=== PATIENT | male | born 1955 | race Caucasian/White ===

== ENCOUNTER 2016-12-12 09:03 | Inpatient (IN) | payer OTHER ==
[2016-12-12 10:02] VITALS: BMI 23.5
--- NOTE | 2016-12-12 11:50 | HP ---
CIWA Score - CIWA Score Nausea/Vomitin-No Nausea/No Vomiting Muscle Tremors: 4-Moderate,w/Arms Extend Anxiety: 4-Mod. Anxious/Guarded Agitation: 4-Moderately Restless Paroxysmal Sweats: 1-Minimal Palms Moist Orientation: 0-Oriented Tacttile Disturbances: 3-Moderate Itch/Numb/Burn Auditory Disturbances: 0-None Visual Disturbances: 0-None Headache: 0-None Present CIWA-Ar Total Score: 16 Admission ROS BHS - HPI Chief Complaint: DETOX TX FOR ALCOHOL DEPENDENCE Allergies/Adverse Reactions: Allergies Allergy/AdvReac Type Severity Reaction Status Date / Time No Known Allergies Allergy Verified 12/12/16 10:18 History of Present Illness: 61 Y/O H/M WITH A HX OF ALCOHOL AND COCAINE DEPENDENCE ON MMTP Exam Limitations: No Limitations - Ebola screening Have you traveled outside of the country in the last 21 days: No Have you had contact with anyone from an Ebola affected area: No Have you been sick,other than usual withdrawal symptoms: No Do you have a fever: No - Review of Systems Constitutional: Chills, Loss of Appetite, Night Sweats, Changes in sleep EENT: reports: Blurred Vision, Tearing, Nose Congestion, Dental Problems (NO TEETH) Respiratory: reports: No Symptoms reported Cardiac: reports: Lightheadedness, Syncope GI: reports: Diarrhea, Nausea, Poor Appetite, Poor Fluid Intake, Vomiting : reports: Frequency Musculoskeletal: reports: Back Pain, Joint Pain, Muscle Pain Integumentary: reports: No Symptoms Reported Neuro: reports: Unsteady Gait, Dizziness Endocrine: reports: No Symptoms Reported Hematology: reports: No Symptoms Reported Psychiatric: reports: Orientated x3, Anxious, Depressed Other Systems: Reviewed and Negative Patient History - Patient Medical History Hx Anemia: No Hx Asthma: No Hx Chronic Obstructive Pulmonary Disease (COPD): No Hx Cardiac Disorders: No Hx Hypertension: No Hx Hypercholesterolemia: No HX Cerebrovascular Accident: No Hx Seizures: No Hx Diabetes: Yes (IDDM) Hx Gastrointestinal Disorders: Yes (HEMORRHOIDS) Hx Genitourinary Disorders: No Hx Sexually Transmitted Disorders: No Hx Renal Disease (ESRD): No Hx Thyroid Disease: No Hx Human Immunodeficiency Virus (HIV): No (NEGATIVE HX) Hx Hepatitis C: Yes (NO TREATMENT) Hx Depression: Yes (ANXIETY) Hx Suicide Attempt: No Hx Schizophrenia: No - Patient Surgical History Past Surgical History: No Hx Neurologic Surgery: No Hx Cataract Extraction: No Hx Cardiac Surgery: No Hx Lung Surgery: No Hx Breast Surgery: No Hx Breast Biopsy: No Hx Abdominal Surgery: No Hx Appendectomy: No Hx Cholecystectomy: No Hx Genitourinary Surgery: No Hx Orthopedic Surgery: No Anesthesia Reaction: No - PPD History Previous Implant?: Yes Documented Results: Positive w/o proof Implanted On Prior [facility] Admission?: No PPD to be Administered?: No - Reproductive History Patient is a Female of Child Bearing Age (11 -55 yrs old): No (MALE) - Smoking Cessation Smoking history: Current every day smoker Have you smoked in the past 12 months: Yes Aproximately how many cigarettes per day: 20 Hx Chewing Tobacco Use: No Initiated information on smoking cessation: Yes 'Breaking Loose' booklet given: 12/12/16 - Substance & Tx. History Hx Alcohol Use: Yes (BEER) Hx Substance Use: Yes (HEROIN/CRACK) Substance Use Type: Alcohol, Cocaine, Heroin Hx Substance Use Treatment: Yes ([facility] [place]) - Substances Abused Crack Route: Smoking Frequency: Daily Amount used: $100-200 Age of first use: 28 Date of Last Use: 12/11/16 Heroin Route: Inhalation Frequency: 1-2 times per week Amount used: 1 bag Age of first use: 16 Date of Last Use: 12/12/16 Alcohol-beer Route: Oral Frequency: Daily Amount used: 1-6 pk. Age of first use: 11 Date of Last Use: 12/12/16 Family Disease History - Family Disease History Family Disease History: Diabetes: Mother, Other: Brother (ALCOHOLISM) Admission Physical Exam S - Vital Signs Vital Signs: Vital Signs - 24 hr 12/12/16 09:59 Temperature 96.7 F L Pulse Rate 82 Respiratory 18 Rate Blood Pressure 111/82 - Physical General Appearance: Yes: Moderate Distress, Irritable, Anxious, Other (SLIGHTLY DROWSY BUT EASILY AROUSABLE.) HEENTM: Yes: EOMI, Normocephalic, SHANE, Pharynx Normal Respiratory: Yes: Chest Non-Tender, Lungs Clear, Normal Breath Sounds, No Respiratory Distress Neck: Yes: Supple, Trachea in good position Cardiology: Yes: Regular Rhythm, Regular Rate, S1, S2 Abdominal: Yes: Normal Bowel Sounds, Non Tender, Soft Genitourinary: Yes: Other (N/C) Musculoskeletal: Yes: full range of Motion, Gait Steady Extremities: Yes: Normal Range of Motion, Non-Tender Neurological: Yes: recreation therapy teacher II-XII NML intact, Fully Oriented, Alert Integumentary: Yes: Dry, Warm Lymphatic: Yes: Within Normal Limits - Diagnostic (1) Alcohol dependence with uncomplicated withdrawal Current Visit: Yes Status: Acute (2) Cocaine dependence, uncomplicated Current Visit: Yes Status: Acute (3) Methadone maintenance therapy patient Current Visit: Yes Status: Chronic (4) History of hepatitis C Current Visit: Yes Status: Chronic (5) Diabetes mellitus Current Visit: Yes Status: Chronic (6) History of hemorrhoids Current Visit: Yes Status: Chronic Cleared for Admission [facility] - Detox or Rehab [facility] Level of Care: Medically Managed Detox Regimen/Protocol: Librium [facility] Breath Alcohol Content Breath Alcohol Content: 0 Urine Drug Screen - Results Drug Screen Negative: No Urine Drug Screen Results: ADAM-Cocaine, OPI-Opiates, MTD-Methadone, TCA- Tricyclic Antidepress, OXY-Oxycodone
[2016-12-12] MEDS ORDERED: [UNRECOGNIZED DRUG - OTHER] PO PRN (11:56)
[2016-12-12] MEDS ORDERED: MAG HYDROX/AL HYDROX/SIMETH 30 ML UNIT-DOSE CUP PO PRN (11:56)
[2016-12-12] MEDS ORDERED: PSEUDOEPHEDRINE PO PRN (11:56)
[2016-12-12] MEDS ORDERED: NICOTINE POLACRILEX 4 MG GUM BUC PRN (11:56)
[2016-12-12] MEDS ORDERED: ACETAMINOPHEN 325 MG TABLET (FP) PO PRN (11:56)
[2016-12-12] MEDS ORDERED: MAGNESIUM HYDROX 2400MG/30ML ORAL SUSPENSION 30 ML CUP PO PRN (11:56)
[2016-12-12] MEDS ORDERED: chlordiazePOXIDE HCL 25 MG CAPSULE PO PRN (11:56)
[2016-12-12] MEDS ORDERED: MENTHOL/PHENOL 1 EACH UD MM PRN (11:56)
[2016-12-12] MEDS ORDERED: hydrOXYzine PAMOATE 25 MG CAPSULE (FP) PO PRN (11:56)
[2016-12-12] MEDS ORDERED: LOPERAMIDE HCL 2 MG CAPSULE PO PRN (11:56)
[2016-12-12] MEDS ORDERED: guaiFENesin/D-METHORPHAN HB 10 ML UNIT-DOSE CUPS PO PRN (11:56)
[2016-12-12] MEDS ORDERED: MAGNESIUM CITRATE 300 ML BOTTLE PO PRN (11:56)
[2016-12-12] MEDS: NICOTINE 21 MG/24 HOURS TOPICAL PATCH TD SCH (13:44)
--- NOTE | 2016-12-12 14:37 | CONSULT ---
[facility] Psychiatric Consult - Data Date of interview: 12/12/16 Admission source: [facility] Identifying data: This is 61 years old male with no psychiatric hospitalization history intoxicated with Opioids, Crack, Alcohol and Nicotine Substance Abuse History: Smoking history: Current every day smoker. Have you smoked in the past 12 months: Yes. Aproximately how many cigarettes per day: 20. Hx Chewing Tobacco Use: No. Initiated information on smoking cessation: Yes. 'Breaking Loose' booklet given: 12/12/16. - Substance & Tx. History. Hx Alcohol Use: Yes (BEER). Hx Substance Use: Yes (HEROIN/CRACK). Substance Use Type: Alcohol, Cocaine, Heroin. Hx Substance Use Treatment: Yes ([facility]). - Substances Abused. Crack. Route: Smoking. Frequency: Daily. Amount used: $100-200. Age of first use: 28. Date of Last Use: 12/11/16. Heroin. Route: Inhalation. Frequency: 1-2 times per week. Amount used: 1 bag. Age of first use: 16. Date of Last Use: 12/12/16. Alcohol-beer. Route: Oral. Frequency: Daily. Amount used: 1-6 pk. Age of first use: 11. Date of Last Use : 12/12/16 Medical History: MMTP 90mg per day Psychiatric History: Patient reports history of anxiety, reports no psychiatric medications taking prior to admission Physical/Sexual Abuse/Trauma History: Denies Additional Comment: Observation. Detox Unit Care Protocol Mental Status Exam - Mental Status Exam Alert and Oriented to: Person Cognitive Function: Fair Patient Appearance: Unkempt Mood: Euthymic Affect: Mood Congruent Patient Behavior: Cooperative Speech Pattern: Appropriate Voice Loudness: Normal Thought Process: Goal Oriented Thought Disorder: Being Controlled Hallucinations: Denies Suicidal Ideation: Denies Homicidal Ideation: Denies Insight/Judgement: Fair Sleep: Difficulty falling asleep Appetite: Fair Muscle strength/Tone: Normal Gait/Station: Shuffling Additional Comments: Observation. Detox Unit Care Protocol Psychiatric Findings - Problem List ([place] 1, 2,3) (1) Drug-induced mood disorder Current Visit: Yes Status: Acute (2) Nicotine dependence Current Visit: Yes Status: Acute - Initial Treatment Plan Initial Treatment Plan: Observation. Detox Unit Care Protocol
[2016-12-12] MEDS: INSULIN SLIDING SCALE (NOVOLOG) 1 VIAL SQ SCH (17:07)
[2016-12-12] MEDS: chlordiazePOXIDE HCL 25 MG CAPSULE PO SCH ×2 (17:43→22:36)
[2016-12-12 20:14] LABS: URINE APPEARANCE CLEAR; URINE BILIRUBIN NEGATIVE (NEGATIVE); URINE BLOOD NEGATIVE (NEGATIVE); URINE COLOR AMBER; URINE GLUCOSE (UA) NEGATIVE (NEGATIVE); URINE KETONE NEGATIVE (NEGATIVE); URINE LEUK ESTERASE NEGATIVE (NEGATIVE); URINE NITRITE NEGATIVE (NEGATIVE); URINE PROTEIN NEGATIVE (NEGATIVE); URINE UROBILINOGEN 4.0 E.U/dl E.U./dl (0.2-1.0)
[2016-12-12] MEDS: THIAMINE HCL 100 MG TABLET (FP) PO SCH (22:36)
[2016-12-13] MEDS ORDERED: METHADONE HCL 10 MG TABLET ONE (05:26)
[2016-12-13] MEDS ORDERED: METHADONE HCL 40 MG DISPERSABLE TABLET ONE (05:26)
[2016-12-13] MEDS ORDERED: METHADONE HCL 5 MG TABLET ONE (05:27)
[2016-12-13] MEDS: chlordiazePOXIDE HCL 25 MG CAPSULE PO SCH ×4 (05:39→22:25)
[2016-12-13] MEDS: METHADONE 80 MG, METHADONE 10 MG, METHADONE 5 MG PO SCH (05:40)
[2016-12-13] MEDS ORDERED: METHADONE HCL 10 MG TABLET PO SCH (06:00)
[2016-12-13] MEDS: INSULIN SLIDING SCALE (NOVOLOG) 1 VIAL SQ SCH ×2 (07:23→17:47)
[2016-12-13 10:12] LABS: MCH 29.5 pg (25.7-33.7); MCHC 32.5 g/dl (32.0-35.9); MEAN CELL VOLUME 90.7 fl (80-96); MEAN PLT VOLUME 7.4 fl (7.5-11.1); PLATELET COUNT 239 K/MM3 (134-434); RDW 14.8 % (11.9-15.9); WHITE BLOOD COUNT 6.3 K/mm3 (4.0-10.0)
[2016-12-13] MEDS: PRENATAL VITAMINS W/ FOLIC ACID TABLET (FP) PO SCH (10:44)
[2016-12-13] MEDS: NICOTINE 21 MG/24 HOURS TOPICAL PATCH TD SCH (10:44)
[2016-12-13 10:47] LABS: ALBUMIN 3.6 g/dl (3.4-5.0); ALK PHOS 140 U/L (45-117); ANION GAP 7 (8-16); BILIRUBIN,TOTAL 0.5 mg/dL (0.2-1.0); CALCIUM 8.8 mg/dL (8.5-10.1); CO2 27 mmol/L (21-32); CREATININE 0.7 mg/dL (0.7-1.3); GLUCOSE,RANDOM 111 mg/dL (74-106); SGOT/AST 54 U/L (15-37); SGPT/ALT 62 U/L (12-78)
[2016-12-13] MEDS: BACITRACIN 0.9 GM PACKET TP SCH ×2 (11:15→22:25)
[2016-12-13] MEDS: AMMONIUM LACTATE 12% LOTION 225 GM BOTTLE TP SCH ×2 (11:15→22:25)
--- NOTE | 2016-12-13 11:18 | PN ---
S CIWA - CIWA Score Nausea/Vomitin-No Nausea/No Vomiting Muscle Tremors: 4-Moderate,w/Arms Extend Anxiety: 3 Agitation: 4-Moderately Restless Paroxysmal Sweats: 3 Orientation: 0-Oriented Tacttile Disturbances: 0-None Auditory Disturbances: 0-None Visual Disturbances: 0-None Headache: 0-None Present CIWA-Ar Total Score: 14 BHS Progress Note (SOAP) Subjective: shakes sweats dry hands/skin on edge of fingers split interrupted sleep body aches Objective: 12/13/16 11:16 Vital Signs Temperature 98.0 F 12/13/16 09:58 Pulse Rate 100 H 12/13/16 09:58 Respiratory Rate 16 12/13/16 09:58 Blood Pressure 112/79 12/13/16 09:58 O2 Sat by Pulse Oximetry (%) Laboratory Tests 12/12/16 12/12/16 12/12/16 10:44 16:42 19:00 WBC RBC Hgb Hct MCV MCHC RDW Plt Count MPV Sodium Potassium Chloride Carbon Dioxide Anion Gap BUN Creatinine Creat Clearance w eGFR POC Glucometer 162 112 Random Glucose Calcium Total Bilirubin AST ALT Alkaline Phosphatase Total Protein Albumin Urine Color [place] Urine Appearance Clear Urine pH 5.0 Ur Specific [place] 1.025 Urine Protein Negative Urine Glucose (UA) Negative Urine Ketones Negative Urine Blood Negative Urine Nitrite Negative Urine Bilirubin Negative Urine Urobilinogen 4.0 e.u/dl Ur Leukocyte Esterase Negative 12/13/16 12/13/16 12/13/16 05:58 06:00 06:00 WBC 6.3 RBC 4.22 Hgb 12.4 Hct 38.3 MCV 90.7 MCHC 32.5 RDW 14.8 Plt Count 239 MPV 7.4 L Sodium 138 Potassium 4.6 Chloride 104 Carbon Dioxide 27 Anion Gap 7 L BUN 15 Creatinine 0.7 Creat Clearance w eGFR > 60 POC Glucometer 112 Random Glucose 111 H Calcium 8.8 Total Bilirubin 0.5 AST 54 H ALT 62 Alkaline Phosphatase 140 H Total Protein 8.0 Albumin 3.6 Urine Color Urine Appearance Urine pH Ur Specific [place] Urine Protein Urine Glucose (UA) Urine Ketones Urine Blood Urine Nitrite Urine Bilirubin Urine Urobilinogen Ur Leukocyte Esterase awake/alert ambulating no acute distress Assessment: 12/13/16 11:16 withdrawal sx Plan: continue detox increase fluids bacitracin oint lac-hydrin lotion glucerna with meals
[2016-12-13 12:44] LABS: SICKLE CELL SCREEN NEGATIVE (NEGATIVE)
--- NOTE | 2016-12-13 16:56 | EKG ---
Test Reason : Blood Pressure : / mmHG Vent. Rate : 083 BPM Atrial Rate : 083 BPM P-R Int : 152 ms QRS Dur : 090 ms QT Int : 370 ms P-R-T Axes : 076 -02 065 degrees QTc Int : 434 ms NORMAL SINUS RHYTHM NORMAL ECG NO PREVIOUS ECGS AVAILABLE Confirmed by IDANIA NEWBERRY MD ([id number]) on 12/13/2016 4:55:57 PM Referred By: Confirmed By:IDANIA NEWBERRY MD
[2016-12-13] MEDS: diphenhydrAMINE HCL 50 MG CAPSULE PO PRN (22:24)
[2016-12-13] MEDS: THIAMINE HCL 100 MG TABLET (FP) PO SCH (22:24)
[2016-12-14] MEDS ORDERED: METHADONE HCL 10 MG TABLET ONE (04:16)
[2016-12-14] MEDS ORDERED: METHADONE HCL 40 MG DISPERSABLE TABLET ONE (04:16)
[2016-12-14] MEDS ORDERED: METHADONE HCL 5 MG TABLET ONE (04:17)
[2016-12-14] MEDS: METHADONE 80 MG, METHADONE 10 MG, METHADONE 5 MG PO SCH (05:45)
[2016-12-14] MEDS: chlordiazePOXIDE HCL 25 MG CAPSULE PO SCH ×2 (05:45→10:36)
[2016-12-14] MEDS: IBUPROFEN 400 MG TABLET (FP) PO PRN ×2 (05:47→22:57)
[2016-12-14] MEDS: INSULIN SLIDING SCALE (NOVOLOG) 1 VIAL SQ SCH ×2 (07:57→16:44)
[2016-12-14] MEDS: PRENATAL VITAMINS W/ FOLIC ACID TABLET (FP) PO SCH (10:36)
[2016-12-14] MEDS: BACITRACIN 0.9 GM PACKET TP SCH ×2 (10:36→22:55)
[2016-12-14] MEDS: NICOTINE 21 MG/24 HOURS TOPICAL PATCH TD SCH (10:37)
[2016-12-14] MEDS: AMMONIUM LACTATE 12% LOTION 225 GM BOTTLE TP SCH ×2 (10:37→22:56)
--- NOTE | 2016-12-14 11:21 | PN ---
BHS Progress Note (SOAP) Subjective: INTERRRUPTED SLEEP, SWEATS,LBP, DIARRHEA, DM Objective: 12/14/16 11:18 Vital Signs Temperature 97.3 F L 12/14/16 10:00 Pulse Rate 102 H 12/14/16 10:00 Respiratory Rate 16 12/14/16 10:00 Blood Pressure 113/79 12/14/16 10:00 O2 Sat by Pulse Oximetry (%) Laboratory Tests 12/12/16 12/12/16 12/12/16 10:44 16:42 19:00 WBC RBC Hgb Hct MCV MCHC RDW Plt Count MPV Sickle Cell Screen Sodium Potassium Chloride Carbon Dioxide Anion Gap BUN Creatinine Creat Clearance w eGFR POC Glucometer 162 112 Random Glucose Calcium Total Bilirubin AST ALT Alkaline Phosphatase Total Protein Albumin Urine Color [place] Urine Appearance Clear Urine pH 5.0 Ur Specific [place] 1.025 Urine Protein Negative Urine Glucose (UA) Negative Urine Ketones Negative Urine Blood Negative Urine Nitrite Negative Urine Bilirubin Negative Urine Urobilinogen 4.0 e.u/dl Ur Leukocyte Esterase Negative RPR Titer 12/13/16 12/13/16 12/13/16 05:58 06:00 06:00 WBC 6.3 RBC 4.22 Hgb 12.4 Hct 38.3 MCV 90.7 MCHC 32.5 RDW 14.8 Plt Count 239 MPV 7.4 L Sickle Cell Screen Negative Sodium 138 Potassium 4.6 Chloride 104 Carbon Dioxide 27 Anion Gap 7 L BUN 15 Creatinine 0.7 Creat Clearance w eGFR > 60 POC Glucometer 112 Random Glucose 111 H Calcium 8.8 Total Bilirubin 0.5 AST 54 H ALT 62 Alkaline Phosphatase 140 H Total Protein 8.0 Albumin 3.6 Urine Color Urine Appearance Urine pH Ur Specific [place] Urine Protein Urine Glucose (UA) Urine Ketones Urine Blood Urine Nitrite Urine Bilirubin Urine Urobilinogen Ur Leukocyte Esterase RPR Titer 12/13/16 12/13/16 12/14/16 06:00 17:17 05:41 WBC RBC Hgb Hct MCV MCHC RDW Plt Count MPV Sickle Cell Screen Sodium Potassium Chloride Carbon Dioxide Anion Gap BUN Creatinine Creat Clearance w eGFR POC Glucometer 136 108 Random Glucose Calcium Total Bilirubin AST ALT Alkaline Phosphatase Total Protein Albumin Urine Color Urine Appearance Urine pH Ur Specific [place] Urine Protein Urine Glucose (UA) Urine Ketones Urine Blood Urine Nitrite Urine Bilirubin Urine Urobilinogen Ur Leukocyte Esterase RPR Titer Nonreactive Assessment: 12/14/16 11:18 WITHDRAWAL SXLS Plan: CONT. DETOX INCREASE FLUIDS IMODIUM PRN
[2016-12-14] MEDS: chlordiazePOXIDE 5 MG CAPSULE PO SCH ×2 (17:59→22:55)
[2016-12-14] MEDS: THIAMINE HCL 100 MG TABLET (FP) PO SCH (22:56)
[2016-12-14] MEDS: diphenhydrAMINE HCL 50 MG CAPSULE PO PRN (22:58)
[2016-12-15] MEDS ORDERED: METHADONE HCL 5 MG TABLET ONE (05:19)
[2016-12-15] MEDS ORDERED: METHADONE HCL 40 MG DISPERSABLE TABLET ONE (05:19)
[2016-12-15] MEDS ORDERED: METHADONE HCL 10 MG TABLET ONE (05:19)
[2016-12-15] MEDS: chlordiazePOXIDE 5 MG CAPSULE PO SCH ×2 (05:53→10:48)
[2016-12-15] MEDS: METHADONE 80 MG, METHADONE 10 MG, METHADONE 5 MG PO SCH (05:53)
[2016-12-15] MEDS: IBUPROFEN 400 MG TABLET (FP) PO PRN ×2 (05:53→22:29)
[2016-12-15] MEDS: INSULIN SLIDING SCALE (NOVOLOG) 1 VIAL SQ SCH ×2 (07:10→16:31)
[2016-12-15] MEDS: BACITRACIN 0.9 GM PACKET TP SCH ×2 (10:48→22:29)
[2016-12-15] MEDS: PRENATAL VITAMINS W/ FOLIC ACID TABLET (FP) PO SCH (10:48)
[2016-12-15] MEDS: NICOTINE 21 MG/24 HOURS TOPICAL PATCH TD SCH (10:49)
[2016-12-15] MEDS: AMMONIUM LACTATE 12% LOTION 225 GM BOTTLE TP SCH ×2 (10:49→22:30)
--- NOTE | 2016-12-15 10:58 | PN ---
BHS Progress Note (SOAP) Subjective: sweats agitation Objective: 12/15/16 10:58 Vital Signs Temperature 97.3 F L 12/15/16 09:30 Pulse Rate 90 12/15/16 09:30 Respiratory Rate 20 12/15/16 09:30 Blood Pressure 124/68 12/15/16 09:30 O2 Sat by Pulse Oximetry (%) awake/alert ambulating no acute distress Assessment: 12/15/16 10:58 withdrawal sx Plan: continue detox increase fluids d/c in am
[2016-12-15] MEDS: chlordiazePOXIDE HCL 10 MG CAPSULE PO SCH ×2 (17:55→22:29)
[2016-12-15] MEDS: THIAMINE HCL 100 MG TABLET (FP) PO SCH (22:29)
[2016-12-15] MEDS: diphenhydrAMINE HCL 50 MG CAPSULE PO PRN (22:30)
[2016-12-16] MEDS ORDERED: METHADONE HCL 10 MG TABLET ONE (04:06)
[2016-12-16] MEDS ORDERED: METHADONE HCL 40 MG DISPERSABLE TABLET ONE (04:06)
[2016-12-16] MEDS ORDERED: METHADONE HCL 5 MG TABLET ONE (04:06)
[2016-12-16] MEDS: IBUPROFEN 400 MG TABLET (FP) PO PRN (04:27)
[2016-12-16] MEDS: chlordiazePOXIDE HCL 10 MG CAPSULE PO SCH (04:27)
[2016-12-16] MEDS: METHADONE 80 MG, METHADONE 10 MG, METHADONE 5 MG PO SCH (05:32)
--- NOTE | 2016-12-16 08:20 | PN ---
S Progress Note (SOAP) Subjective: ALERT,NO COMPLAINT Objective: 12/16/16 08:15 Vital Signs Temperature 97.5 F L 12/16/16 06:44 Pulse Rate 85 12/16/16 06:44 Respiratory Rate 18 12/16/16 06:44 Blood Pressure 109/78 12/16/16 06:44 O2 Sat by Pulse Oximetry (%) Assessment: 12/16/16 08:16 DETOX COMPLETED,NO WITHDRAWAL SYMPTOM Plan: DISCHARGE TODAY,FOLLOW UP WITH AFTER CARE PROGRAM ARRANGEMENT REVELATION
--- NOTE | 2016-12-16 08:22 | DS ---
[facility] Detox Discharge Summary Admission Date: 12/12/16 Discharge Date: 12/16/16 - History Present History: Alcohol Dependence, Cocaine Dependence, MMTP Additional Comments: FOLLOW UP WITH AFTER CARE PROGRAM REVELATION ARRANGEMENT AND PMD FOR MEDICAL PROBLEM Pertinent Past History: HEPATITIS C TYPE 2 DM HISTORY OF HEMORRHOIDS - Physical Exam Results Vital Signs: Vital Signs Temperature 97.5 F L 12/16/16 06:44 Pulse Rate 85 12/16/16 06:44 Respiratory Rate 18 12/16/16 06:44 Blood Pressure 109/78 12/16/16 06:44 O2 Sat by Pulse Oximetry (%) Pertinent Admission Physical Exam Findings: WITHDRAWAL SYMPTOM - Treatment Hospital Course: Detox Protocol Followed, Detoxed Safely, Responded well, Discharged Condition Good, Rehab Referral Accepted Patient has Accepted a Rehab Referral to: [facility] - Medication Discharge Medications: Ambulatory Orders Unobtainable [Unobtainable] 12/12/16 - AMA Did Patient Leave Against Medical Advice: No
[2016-12-16 10:16] VITALS: BP 120/74; PULSE 75; TEMP 97.3
== END 2016-12-16 10:21 | disposition home or self-care (01) | DRG 773 ==
LOC: YASAS 09:03 → Y6N 11:44
PROVIDERS: ADMIT Internal Medicine; ATTEND Internal Medicine
PROC: HZ2ZZZZ Detoxification Services for Substance Abuse Treatment (ICD-10-PCS; principal; 2016-12-16)
DX: F11.20 Opioid dependence, uncomplicated (principal); F10.230 Alcohol dependence with withdrawal, uncomplicated; F14.20 Cocaine dependence, uncomplicated; F17.210 Nicotine dependence, cigarettes, uncomplicated; E11.9 Type 2 diabetes mellitus without complications; Z79.4 Long term (current) use of insulin; F41.8 Other specified anxiety disorders; D64.9 Anemia, unspecified
CPT/HCPCS: 36415; 71020-TC; 80053; 81003; 85027; 85660; 86593; 93005; 93010

== ENCOUNTER 2021-03-11 15:39 | Inpatient (IN) | payer OTHER ==
[2021-03-11] MEDS ORDERED: ACETAMINOPHEN 500 MG TABLET (FP) PO ONE (16:52)
[2021-03-11] MEDS ORDERED: LIDOCAINE 5% TOPICAL PATCH TP ONE (16:52)
[2021-03-11] MEDS ORDERED: SODIUM CHLORIDE 0.9% 500 ML INFUS.BAG IV ONE (16:58)
[2021-03-11] MEDS ORDERED: SODIUM CHLORIDE 1,823 ML IV ONE (17:18)
[2021-03-11] MEDS ORDERED: LIDOCAINE 5% TOPICAL PATCH ONE (17:43)
[2021-03-11] MEDS ORDERED: ACETAMINOPHEN 325 MG TABLET (FP) ONE (17:43)
[2021-03-11 18:55] LABS: BASO % 0.9 % (0-2.0); EOS % 0.3 % (0-4.5); HEMATOCRIT 35.9 % (35.4-49); HEMOGLOBIN 12.1 GM/dL (11.7-16.9); LYMPH % 20.2 % (8-40); MCH 33.3 pg (25.7-33.7); MCHC 33.7 g/dl (32.0-35.9); MEAN CELL VOLUME 98.7 fl (80-96); MEAN PLT VOLUME 8.6 fl (7.5-11.1); MONO % 16.3 % (3.8-10.2); NEUT % 62.3 % (42.8-82.8); PLATELET COUNT 158 10^3/uL (134-434); RBC 3.64 M/mm3 (4.00-5.60); RDW 14.8 % (11.9-15.9); WHITE BLOOD COUNT 5.4 K/mm3 (4.0-10.0)
[2021-03-11 18:58] LABS: VENOUS BASE EXCESS 0.5 mmol/L (-2-2); VENOUS O2 SATURATION 26.6 % (70-80); VENOUS PCO2 48.6 mmHg (38-52); VENOUS PH 7.355 (7.310-7.410)
[2021-03-11 19:12] LABS: CHLORIDE 97 mmol/L (98-107); SODIUM 123 mmol/L (136-145)
[2021-03-11 19:13] LABS: CALCIUM 8.4 mg/dL (8.5-10.1)
[2021-03-11 19:14] LABS: ALBUMIN 2.3 g/dl (3.4-5.0); CO2 27 mmol/L (21-32); GLUCOSE,RANDOM 354 mg/dL (74-106)
[2021-03-11 19:17] LABS: CREATININE 0.7 mg/dL (0.55-1.3)
[2021-03-11 19:18] LABS: BILIRUBIN,TOTAL 1.2 mg/dL (0.2-1); TOT PROT 9.8 g/dl (6.4-8.2)
[2021-03-11 19:20] LABS: ALK PHOS 227 U/L (45-117)
[2021-03-11 19:21] LABS: ANION GAP -1 MMOL/L (8-16); SGOT/AST 285 U/L (15-37); SGPT/ALT 89 U/L (13-61)
[2021-03-11 19:32] LABS: ERYTHROCYTE SEDIMENTATION RATE 83 mm/hr (0-20)
[2021-03-11 20:45] LABS: URINE APPEARANCE CLEAR; URINE BILIRUBIN NEGATIVE (NEGATIVE); URINE COLOR YELLOW; URINE GLUCOSE (UA) 3+ (NEGATIVE); URINE KETONE NEGATIVE (NEGATIVE); URINE LEUK ESTERASE NEGATIVE (NEGATIVE); URINE NITRITE NEGATIVE (NEGATIVE); URINE PROTEIN NEGATIVE (NEGATIVE)
[2021-03-12] MEDS ORDERED: PIPERACILLIN/TAZOB 3.375 GM 3.375 GM in DEXTROSE 5%-WATER - 50 ML IVPB SCH (02:00)
[2021-03-12] MEDS ORDERED: PIPERACILLIN/TAZOB 3.375 GM 3.375 GM/50 ML BAG IVPB ONE (02:46)
[2021-03-12] MEDS: SODIUM CHLORIDE 1,000 ML IV SCH ×3 (03:00→15:59)
[2021-03-12] MEDS: PIPERACILLIN/TAZOB 3.375 GM 3.375 GM/50 ML BAG IVPB SCH ×2 (03:00→11:22)
[2021-03-12 04:00] VITALS: BMI 20.5
[2021-03-12] MEDS ORDERED: LIDOCAINE PATCH REMOVAL MC ONE (05:00)
[2021-03-12] MEDS: INSULIN SLIDING SCALE (NOVOLOG) 1 VIAL SQ SCH ×4 (06:08→21:12)
[2021-03-12 07:51] LABS: BASO % 0.9 % (0-2.0); EOS % 0.9 % (0-4.5); HEMATOCRIT 34.6 % (35.4-49); HEMOGLOBIN 11.9 GM/dL (11.7-16.9); LYMPH % 25.7 % (8-40); MCH 33.3 pg (25.7-33.7); MCHC 34.3 g/dl (32.0-35.9); MEAN CELL VOLUME 97.1 fl (80-96); MEAN PLT VOLUME 8.1 fl (7.5-11.1); MONO % 13.8 % (3.8-10.2); NEUT % 58.7 % (42.8-82.8); PLATELET COUNT 139 10^3/uL (134-434); RBC 3.56 M/mm3 (4.00-5.60); RDW 14.5 % (11.9-15.9); WHITE BLOOD COUNT 4.3 K/mm3 (4.0-10.0)
[2021-03-12 08:13] LABS: ALBUMIN 2.2 g/dl (3.4-5.0)
[2021-03-12 08:14] LABS: BLOOD UREA NITROGEN 7.4 mg/dL (7-18); CALCIUM 8.2 mg/dL (8.5-10.1)
[2021-03-12 08:17] LABS: CREATININE 0.5 mg/dL (0.55-1.3)
[2021-03-12 08:18] LABS: BILIRUBIN,TOTAL 1.7 mg/dL (0.2-1); TOT PROT 7.8 g/dl (6.4-8.2)
[2021-03-12] MEDS ORDERED: VANCOMYCIN 1 GM in D5W (PRE-DOCKED) 1,000 MG/250 ML IVPB SCH (10:00)
[2021-03-12] MEDS ORDERED: PIPERACILLIN/TAZOBACTAM 3.375 GM VIAL IVPB ONE ×2 (11:06→16:57)
[2021-03-12] MEDS ORDERED: DEXTROSE 5%-WATER - 50 ML IVPB ONE ×2 (11:06→16:57)
[2021-03-12] MEDS: PIPERACILLIN/TAZOB 3.375 GM 3.375 GM in DEXTROSE 5%-WATER - 3.375 GM/50 ML IVPB IVPB SCH ×2 (11:08→17:06)
[2021-03-12] MEDS: ENOXAPARIN NA (PORCINE) 40 MG/0.4 ML DISP.SYRIN SQ SCH (11:08)
[2021-03-12 11:16] LABS: HIV INTERPRETATION NEGATIVE (NEGATIVE)
[2021-03-12] MEDS ORDERED: INSULIN (NOVOLOG) ASPART 100 UNITS/ML 10ML VIAL ONE ×3 (11:17→20:25)
[2021-03-12] MEDS: ACETAMINOPHEN 325 MG TABLET (FP) PO PRN ×2 (15:59→21:53)
[2021-03-12 16:38] LABS: CALCIUM 8.4 mg/dL (8.5-10.1)
[2021-03-12 16:42] LABS: CREATININE 0.8 mg/dL (0.55-1.3)
[2021-03-13] MEDS ORDERED: DEXTROSE 5%-WATER - 50 ML IVPB ONE ×3 (00:42→17:54)
[2021-03-13] MEDS ORDERED: PIPERACILLIN/TAZOBACTAM 3.375 GM VIAL IVPB ONE ×4 (00:42→17:54)
[2021-03-13] MEDS: PIPERACILLIN/TAZOB 3.375 GM 3.375 GM in DEXTROSE 5%-WATER - 3.375 GM/50 ML IVPB IVPB SCH ×3 (01:14→17:58)
[2021-03-13] MEDS: INSULIN SLIDING SCALE (NOVOLOG) 1 VIAL SQ SCH ×4 (06:02→21:31)
[2021-03-13] MEDS: ACETAMINOPHEN 325 MG TABLET (FP) PO PRN ×2 (08:38→21:31)
[2021-03-13 08:43] LABS: BASO % 0.6 % (0-2.0); EOS % 0.9 % (0-4.5); HEMATOCRIT 37.6 % (35.4-49); HEMOGLOBIN 12.6 GM/dL (11.7-16.9); LYMPH % 23.2 % (8-40); MCH 32.7 pg (25.7-33.7); MCHC 33.4 g/dl (32.0-35.9); MEAN CELL VOLUME 97.9 fl (80-96); MEAN PLT VOLUME 8.3 fl (7.5-11.1); NEUT % 58.3 % (42.8-82.8); PLATELET COUNT 143 10^3/uL (134-434); RBC 3.84 M/mm3 (4.00-5.60); RDW 14.3 % (11.9-15.9); WHITE BLOOD COUNT 4.3 K/mm3 (4.0-10.0)
[2021-03-13 09:14] LABS: ALBUMIN 2.1 g/dl (3.4-5.0); MAGNESIUM 1.8 mg/dL (1.8-2.4)
[2021-03-13 09:17] LABS: CREATININE 0.6 mg/dL (0.55-1.3); PHOSPHOROUS 2.8 mg/dL (2.5-4.9)
[2021-03-13 09:19] LABS: BILIRUBIN,TOTAL 1.4 mg/dL (0.2-1); TOT PROT 7.6 g/dl (6.4-8.2)
[2021-03-13] MEDS: ENOXAPARIN NA (PORCINE) 40 MG/0.4 ML DISP.SYRIN SQ SCH (09:46)
[2021-03-13] MEDS: VANCOMYCIN 1 GM in D5W (PRE-DOCKED) 1,000 MG/250 ML IVPB SCH (09:46)
[2021-03-13] MEDS ORDERED: INSULIN (NOVOLOG) ASPART 100 UNITS/ML 10ML VIAL ONE ×2 (11:25→23:41)
[2021-03-13] MEDS: SODIUM CHLORIDE 1,000 ML IV SCH (23:18)
[2021-03-14] MEDS ORDERED: PIPERACILLIN/TAZOBACTAM 3.375 GM VIAL IVPB ONE ×2 (02:15→08:44)
[2021-03-14] MEDS ORDERED: DEXTROSE 5%-WATER - 50 ML IVPB ONE ×2 (02:15→08:44)
[2021-03-14] MEDS: PIPERACILLIN/TAZOB 3.375 GM 3.375 GM in DEXTROSE 5%-WATER - 3.375 GM/50 ML IVPB IVPB SCH ×2 (02:31→09:34)
[2021-03-14] MEDS: ACETAMINOPHEN 325 MG TABLET (FP) PO PRN ×3 (05:58→21:15)
[2021-03-14] MEDS: INSULIN SLIDING SCALE (NOVOLOG) 1 VIAL SQ SCH ×4 (06:01→21:41)
[2021-03-14 08:23] LABS: BASO % 0.5 % (0-2.0); EOS % 1.4 % (0-4.5); HEMATOCRIT 35.9 % (35.4-49); HEMOGLOBIN 12.1 GM/dL (11.7-16.9); MCH 32.7 pg (25.7-33.7); MCHC 33.7 g/dl (32.0-35.9); MEAN CELL VOLUME 97.2 fl (80-96); MEAN PLT VOLUME 8.4 fl (7.5-11.1); MONO % 16.9 % (3.8-10.2); NEUT % 57.2 % (42.8-82.8); PLATELET COUNT 141 10^3/uL (134-434); RDW 14.5 % (11.9-15.9); WHITE BLOOD COUNT 4.7 K/mm3 (4.0-10.0)
[2021-03-14 08:40] LABS: CALCIUM 8.8 mg/dL (8.5-10.1)
[2021-03-14 08:41] LABS: BLOOD UREA NITROGEN 11.3 mg/dL (7-18)
[2021-03-14 08:44] LABS: CREATININE 0.6 mg/dL (0.55-1.3)
[2021-03-14] MEDS: ENOXAPARIN NA (PORCINE) 40 MG/0.4 ML DISP.SYRIN SQ SCH (09:32)
[2021-03-14] MEDS: VANCOMYCIN 1 GM in D5W (PRE-DOCKED) 1,000 MG/250 ML IVPB SCH (09:35)
[2021-03-14] MEDS ORDERED: SODIUM CHLORIDE 1,000 ML IV SCH (09:59)
[2021-03-14] MEDS ORDERED: INSULIN (NOVOLOG) ASPART 100 UNITS/ML 10ML VIAL ONE (11:11)
[2021-03-14] MEDS: INSULIN (LEVEMIR) 100 UNITS/ML UNITS SQ SCH ×2 (11:45→17:19)
[2021-03-15] MEDS: INSULIN (LEVEMIR) 100 UNITS/ML UNITS SQ SCH ×2 (06:07→17:00)
[2021-03-15] MEDS: INSULIN SLIDING SCALE (NOVOLOG) 1 VIAL SQ SCH ×4 (06:08→21:58)
[2021-03-15] MEDS: ACETAMINOPHEN 325 MG TABLET (FP) PO PRN ×2 (06:08→21:53)
[2021-03-15 08:06] LABS: BASO % 1.1 % (0-2.0); EOS % 1.3 % (0-4.5); HEMATOCRIT 37.1 % (35.4-49); HEMOGLOBIN 12.8 GM/dL (11.7-16.9); LYMPH % 21.4 % (8-40); MCH 33.4 pg (25.7-33.7); MCHC 34.4 g/dl (32.0-35.9); MEAN CELL VOLUME 96.9 fl (80-96); MEAN PLT VOLUME 8.1 fl (7.5-11.1); MONO % 16.4 % (3.8-10.2); NEUT % 59.8 % (42.8-82.8); PLATELET COUNT 124 10^3/uL (134-434); RBC 3.83 M/mm3 (4.00-5.60); RDW 14.3 % (11.9-15.9)
[2021-03-15 08:29] LABS: ALBUMIN 2.2 g/dl (3.4-5.0); BLOOD UREA NITROGEN 12.4 mg/dL (7-18)
[2021-03-15 08:33] LABS: CREATININE 0.5 mg/dL (0.55-1.3)
[2021-03-15 08:34] LABS: BILIRUBIN,TOTAL 1.3 mg/dL (0.2-1); TOT PROT 7.8 g/dl (6.4-8.2)
[2021-03-15] MEDS: VANCOMYCIN 1 GM in D5W (PRE-DOCKED) 1,000 MG/250 ML IVPB SCH (09:02)
[2021-03-15] MEDS: ENOXAPARIN NA (PORCINE) 40 MG/0.4 ML DISP.SYRIN SQ SCH (09:02)
[2021-03-15] MEDS ORDERED: INSULIN (NOVOLOG) ASPART 100 UNITS/ML 10ML VIAL ONE ×2 (11:19→21:52)
[2021-03-16] MEDS: INSULIN SLIDING SCALE (NOVOLOG) 1 VIAL SQ SCH ×2 (06:18→10:24)
[2021-03-16] MEDS: INSULIN (LEVEMIR) 100 UNITS/ML UNITS SQ SCH (06:19)
[2021-03-16] MEDS ORDERED: INSULIN (LEVEMIR) 100 UNITS/ML UNITS SQ SCH (08:51)
[2021-03-16] MEDS ORDERED: INSULIN (LEVEMIR) 100 UNITS/ML UNITS SQ ONE (08:51)
[2021-03-16] MEDS: ACETAMINOPHEN 325 MG TABLET (FP) PO PRN (09:36)
[2021-03-16] MEDS: ENOXAPARIN NA (PORCINE) 40 MG/0.4 ML DISP.SYRIN SQ SCH (09:36)
[2021-03-16] MEDS ORDERED: Insulin (LOG) Aspart 100 UNITS/ML VIAL SQ SCH (11:00)
[2021-03-16 12:52] VITALS: BP 110/69; PULSE 90; TEMP 98.7
[2021-03-18 10:25] LABS: KAPPA/LAMBDA RATIO, UR 11.17
== END 2021-03-16 12:30 ==
LOC: JER 15:39 → JERBED 23:54 → J8W 03-12 03:23
PROVIDERS: ADMIT Internal Medicine; ATTEND Internal Medicine
PROC: HZ91ZZZ Pharmacotherapy for Substance Abuse Treatment, Methadone Maintenance (ICD-10-PCS; principal; 2021-03-11)
PROC: HZ2ZZZZ Detoxification Services for Substance Abuse Treatment (ICD-10-PCS; 2021-03-11)
DX: B19.20 Unspecified viral hepatitis C without hepatic coma (principal); F11.20 Opioid dependence, uncomplicated; M54.6 Pain in thoracic spine; E87.1 Hypo-osmolality and hyponatremia; R07.81 Pleurodynia; K70.10 Alcoholic hepatitis without ascites; E11.65 Type 2 diabetes mellitus with hyperglycemia; R74.01 Elevation of levels of liver transaminase levels; E88.09 Other disorders of plasma-protein metabolism, not elsewhere classified; R50.9 Fever, unspecified; K64.9 Unspecified hemorrhoids; Z59.0 Homelessness; E87.5 Hyperkalemia
CPT/HCPCS: 36415; 71045-TC-FY; 71101-TC-LT-FY; 72130-TC; 72133-TC; 76700-TC; 80048; 80053; 80074; 81003; 82010; 82550; 82553; 82803; 82947; 82962; 83036; 83605; 83690; 83735; 83883; 84100; 84132; 84484; 85025; 85651; 86140; 86850; 86900; 86901; 87040; 87086; 87186; 87389; 93005; 93010; 97116-GP; 97161-GP; 99285-25; C9803; Q9967; U0003; U0005

== ENCOUNTER 2021-03-16 12:55 | Inpatient (IN) | payer OTHER ==
[2021-03-16] MEDS ORDERED: guaiFENesin 200 MG/10 ML 10 ML UNIT-DOSE CUPS PO PRN (15:33)
[2021-03-16] MEDS ORDERED: P-EPHED 60MG/TRIPROLIDI 2.5MG TABLET PO PRN (15:33)
[2021-03-16] MEDS ORDERED: MAG HYDROX/AL HYDROX/SIMETH 30 ML UNIT-DOSE CUP PO PRN (15:33)
[2021-03-16] MEDS ORDERED: LOPERAMIDE HCL 2 MG CAPSULE PO PRN (15:33)
[2021-03-16] MEDS ORDERED: MAGNESIUM HYDROX 2400MG/30ML ORAL SUSPENSION 30 ML CUP PO PRN (15:33)
[2021-03-16] MEDS ORDERED: MAGNESIUM CITRATE 300 ML BOTTLE PO PRN (15:33)
[2021-03-16] MEDS ORDERED: NICOTINE POLACRILEX 2 MG GUM BC PRN (15:33)
[2021-03-16 16:07] VITALS: BMI 16.1
[2021-03-16] MEDS ORDERED: INSULIN (NOVOLOG) ASPART 100 UNITS/ML 10ML VIAL ONE ×2 (18:31→22:04)
[2021-03-16] MEDS: INSULIN (LEVEMIR) 100 UNITS/ML UNITS SQ SCH (18:38)
[2021-03-16] MEDS: Insulin (LOG) Aspart 100 UNITS/ML VIAL SQ SCH (18:39)
[2021-03-16] MEDS: hydrOXYzine PAMOATE 25 MG CAPSULE (FP) PO SCH ×2 (19:28→22:00)
[2021-03-16] MEDS: ATORVASTATIN CA 40 MG TABLET (FP) PO SCH (22:00)
[2021-03-16] MEDS: MELATONIN 5 MG TABLETS PO SCH (22:00)
[2021-03-16] MEDS: THIAMINE HCL 100 MG TABLET (FP) PO SCH (22:01)
[2021-03-16] MEDS: INSULIN SLIDING SCALE (NOVOLOG) 1 VIAL SQ SCH (22:05)
[2021-03-17] MEDS: hydrOXYzine PAMOATE 25 MG CAPSULE (FP) PO SCH ×5 (06:55→21:06)
[2021-03-17] MEDS: Insulin (LOG) Aspart 100 UNITS/ML VIAL SQ SCH ×3 (07:04→17:14)
[2021-03-17] MEDS: INSULIN (LEVEMIR) 100 UNITS/ML UNITS SQ SCH ×2 (07:05→17:14)
[2021-03-17] MEDS: INSULIN SLIDING SCALE (NOVOLOG) 1 VIAL SQ SCH ×4 (07:05→21:07)
[2021-03-17] MEDS ORDERED: INSULIN (NOVOLOG) ASPART 100 UNITS/ML 10ML VIAL ONE ×4 (07:07→21:37)
[2021-03-17] MEDS: ACETAMINOPHEN 325 MG TABLET (FP) PO PRN (07:20)
[2021-03-17] MEDS: ASPIRIN COATED 81 MG TABLET.EC PO SCH (09:58)
[2021-03-17] MEDS: NICOTINE 7 MG/24 HOURS TOPICAL PATCH TD SCH (09:58)
[2021-03-17] MEDS: PRENATAL VITAMINS W/ FOLIC ACID TABLET (FP) PO SCH (09:59)
[2021-03-17] MEDS: IBUPROFEN 400 MG TABLET (FP) PO PRN (12:06)
[2021-03-17] MEDS: METHOCARBAMOL 500 MG TABLET PO PRN (12:06)
[2021-03-17 13:39] LABS: HEMATOCRIT 35.5 % (35.4-49); HEMOGLOBIN 11.9 GM/dL (11.7-16.9); MCH 33.2 pg (25.7-33.7); MCHC 33.6 g/dl (32.0-35.9); MEAN CELL VOLUME 98.8 fl (80-96); PLATELET COUNT 151 10^3/uL (134-434); RBC 3.59 M/mm3 (4.00-5.60); RDW 14.8 % (11.9-15.9); WHITE BLOOD COUNT 5.9 K/mm3 (4.0-10.0)
[2021-03-17 14:15] LABS: ALBUMIN 2.2 g/dl (3.4-5.0)
[2021-03-17 14:17] LABS: BLOOD UREA NITROGEN 16.2 mg/dL (7-18)
[2021-03-17 14:18] LABS: CREATININE 0.8 mg/dL (0.55-1.3)
[2021-03-17 14:19] LABS: TOT PROT 7.5 g/dl (6.4-8.2)
[2021-03-17 14:23] LABS: BILIRUBIN,TOTAL 1.8 mg/dL (0.2-1)
[2021-03-17] MEDS: MELATONIN 5 MG TABLETS PO SCH (21:06)
[2021-03-17] MEDS: THIAMINE HCL 100 MG TABLET (FP) PO SCH (21:06)
[2021-03-17] MEDS: ATORVASTATIN CA 40 MG TABLET (FP) PO SCH (21:06)
[2021-03-18] MEDS: IBUPROFEN 400 MG TABLET (FP) PO PRN (06:25)
[2021-03-18] MEDS: hydrOXYzine PAMOATE 25 MG CAPSULE (FP) PO SCH ×5 (06:26→22:59)
[2021-03-18] MEDS: INSULIN SLIDING SCALE (NOVOLOG) 1 VIAL SQ SCH ×4 (06:36→21:15)
[2021-03-18] MEDS: Insulin (LOG) Aspart 100 UNITS/ML VIAL SQ SCH ×3 (06:36→17:13)
[2021-03-18] MEDS: INSULIN (LEVEMIR) 100 UNITS/ML UNITS SQ SCH ×2 (06:37→17:07)
[2021-03-18] MEDS ORDERED: INSULIN (NOVOLOG) ASPART 100 UNITS/ML 10ML VIAL ONE ×4 (06:42→16:47)
[2021-03-18] MEDS: ASPIRIN COATED 81 MG TABLET.EC PO SCH (09:43)
[2021-03-18] MEDS: NICOTINE 7 MG/24 HOURS TOPICAL PATCH TD SCH (09:43)
[2021-03-18] MEDS: PRENATAL VITAMINS W/ FOLIC ACID TABLET (FP) PO SCH (09:43)
[2021-03-18 13:43] LABS: PH,URINE 5.5 (5.0-8.0); URINE APPEARANCE CLEAR; URINE BILIRUBIN NEGATIVE (NEGATIVE); URINE COLOR YELLOW; URINE GLUCOSE (UA) 3+ (NEGATIVE); URINE KETONE NEGATIVE (NEGATIVE); URINE LEUK ESTERASE NEGATIVE (NEGATIVE); URINE NITRITE NEGATIVE (NEGATIVE); URINE PROTEIN NEGATIVE (NEGATIVE)
[2021-03-18] MEDS: THIAMINE HCL 100 MG TABLET (FP) PO SCH (21:09)
[2021-03-18] MEDS: MELATONIN 5 MG TABLETS PO SCH (21:09)
[2021-03-18] MEDS: ATORVASTATIN CA 40 MG TABLET (FP) PO SCH (21:09)
[2021-03-18] MEDS: ACETAMINOPHEN 325 MG TABLET (FP) PO PRN (22:59)
[2021-03-18] MEDS ORDERED: PT OWN MED DRAWER 7, Y5N ONE (22:59)
[2021-03-18] MEDS: METHOCARBAMOL 500 MG TABLET PO PRN (22:59)
[2021-03-19] MEDS: hydrOXYzine PAMOATE 25 MG CAPSULE (FP) PO SCH ×5 (07:07→22:37)
[2021-03-19] MEDS ORDERED: INSULIN (NOVOLOG) ASPART 100 UNITS/ML 10ML VIAL ONE ×4 (08:16→16:48)
[2021-03-19] MEDS: INSULIN (LEVEMIR) 100 UNITS/ML UNITS SQ SCH ×2 (08:19→16:54)
[2021-03-19] MEDS: Insulin (LOG) Aspart 100 UNITS/ML VIAL SQ SCH ×3 (08:20→16:54)
[2021-03-19] MEDS: INSULIN SLIDING SCALE (NOVOLOG) 1 VIAL SQ SCH ×4 (08:21→22:37)
[2021-03-19] MEDS: PRENATAL VITAMINS W/ FOLIC ACID TABLET (FP) PO SCH (09:43)
[2021-03-19] MEDS: ASPIRIN COATED 81 MG TABLET.EC PO SCH (09:43)
[2021-03-19] MEDS: NICOTINE 7 MG/24 HOURS TOPICAL PATCH TD SCH (09:43)
[2021-03-19] MEDS: IBUPROFEN 400 MG TABLET (FP) PO PRN (19:00)
[2021-03-19] MEDS: THIAMINE HCL 100 MG TABLET (FP) PO SCH (22:37)
[2021-03-19] MEDS: MELATONIN 5 MG TABLETS PO SCH (22:37)
[2021-03-19] MEDS: ATORVASTATIN CA 40 MG TABLET (FP) PO SCH (22:37)
[2021-03-20] MEDS: INSULIN (LEVEMIR) 100 UNITS/ML UNITS SQ SCH ×2 (06:23→16:57)
[2021-03-20] MEDS: Insulin (LOG) Aspart 100 UNITS/ML VIAL SQ SCH ×3 (06:24→16:58)
[2021-03-20] MEDS: hydrOXYzine PAMOATE 25 MG CAPSULE (FP) PO SCH ×5 (06:26→21:07)
[2021-03-20] MEDS: INSULIN SLIDING SCALE (NOVOLOG) 1 VIAL SQ SCH ×4 (06:26→21:05)
[2021-03-20 07:12] VITALS: BP 91/65; PULSE 103; TEMP 97.3
[2021-03-20] MEDS: ASPIRIN COATED 81 MG TABLET.EC PO SCH (09:38)
[2021-03-20] MEDS: PRENATAL VITAMINS W/ FOLIC ACID TABLET (FP) PO SCH (09:38)
[2021-03-20] MEDS: NICOTINE 7 MG/24 HOURS TOPICAL PATCH TD SCH (09:39)
[2021-03-20] MEDS ORDERED: INSULIN (NOVOLOG) ASPART 100 UNITS/ML 10ML VIAL ONE (16:31)
[2021-03-20] MEDS: ACETAMINOPHEN 325 MG TABLET (FP) PO PRN (16:58)
[2021-03-20] MEDS: IBUPROFEN 400 MG TABLET (FP) PO PRN (21:04)
[2021-03-20] MEDS: METHOCARBAMOL 500 MG TABLET PO PRN (21:04)
[2021-03-20] MEDS: ATORVASTATIN CA 40 MG TABLET (FP) PO SCH (21:04)
[2021-03-20] MEDS: THIAMINE HCL 100 MG TABLET (FP) PO SCH (21:04)
[2021-03-20] MEDS: MELATONIN 5 MG TABLETS PO SCH (21:06)
[2021-03-21] MEDS ORDERED: INSULIN (NOVOLOG) ASPART 100 UNITS/ML 10ML VIAL ONE ×4 (02:03→17:30)
[2021-03-21] MEDS: INSULIN (LEVEMIR) 100 UNITS/ML UNITS SQ SCH ×2 (06:47→17:05)
[2021-03-21] MEDS: INSULIN SLIDING SCALE (NOVOLOG) 1 VIAL SQ SCH ×4 (06:48→22:58)
[2021-03-21] MEDS: Insulin (LOG) Aspart 100 UNITS/ML VIAL SQ SCH ×3 (06:48→17:05)
[2021-03-21] MEDS: hydrOXYzine PAMOATE 25 MG CAPSULE (FP) PO SCH ×5 (06:48→22:58)
[2021-03-21] MEDS: ASPIRIN COATED 81 MG TABLET.EC PO SCH (11:52)
[2021-03-21] MEDS: PRENATAL VITAMINS W/ FOLIC ACID TABLET (FP) PO SCH (11:52)
[2021-03-21] MEDS: NICOTINE 7 MG/24 HOURS TOPICAL PATCH TD SCH (11:53)
[2021-03-21] MEDS: MELATONIN 5 MG TABLETS PO SCH (22:58)
[2021-03-21] MEDS: THIAMINE HCL 100 MG TABLET (FP) PO SCH (22:58)
[2021-03-21] MEDS: ATORVASTATIN CA 40 MG TABLET (FP) PO SCH (22:58)
[2021-03-22] MEDS ORDERED: INSULIN (NOVOLOG) ASPART 100 UNITS/ML 10ML VIAL ONE (04:56)
[2021-03-22] MEDS: INSULIN (LEVEMIR) 100 UNITS/ML UNITS SQ SCH (07:08)
[2021-03-22] MEDS: Insulin (LOG) Aspart 100 UNITS/ML VIAL SQ SCH (07:08)
[2021-03-22] MEDS: INSULIN SLIDING SCALE (NOVOLOG) 1 VIAL SQ SCH (07:08)
[2021-03-22] MEDS: hydrOXYzine PAMOATE 25 MG CAPSULE (FP) PO SCH ×2 (07:08→10:03)
[2021-03-22] MEDS: PRENATAL VITAMINS W/ FOLIC ACID TABLET (FP) PO SCH (10:03)
[2021-03-22] MEDS: ASPIRIN COATED 81 MG TABLET.EC PO SCH (10:03)
[2021-03-22] MEDS: NICOTINE 7 MG/24 HOURS TOPICAL PATCH TD SCH (10:03)
== END 2021-03-22 10:55 | disposition left against medical advice (07) | DRG 770 ==
LOC: YASAS 12:55 → Y5N 17:15
PROVIDERS: ADMIT Allergy & Immunology; ATTEND Allergy & Immunology
PROC: HZ42ZZZ Group Counseling for Substance Abuse Treatment, Cognitive-Behavioral (ICD-10-PCS; principal; 2021-03-16)
DX: F10.20 Alcohol dependence, uncomplicated (principal); F14.20 Cocaine dependence, uncomplicated; F11.20 Opioid dependence, uncomplicated; F17.210 Nicotine dependence, cigarettes, uncomplicated; Z21 Asymptomatic human immunodeficiency virus [HIV] infection status; E11.9 Type 2 diabetes mellitus without complications; Z79.4 Long term (current) use of insulin; R07.81 Pleurodynia; M54.6 Pain in thoracic spine; Z86.19 Personal history of other infectious and parasitic diseases; Z91.14 Patient's other noncompliance with medication regimen; Z91.19 Patient's noncompliance with other medical treatment and regimen
CPT/HCPCS: 36415; 80053; 81003; 82962; 85027; 86593; 86780